=== PATIENT | female | born 1995 | race Caucasian/White ===

== ENCOUNTER 2018-09-14 06:33 | Day surgery (SDC) | payer OTHER ==
--- NOTE | 2018-09-13 19:04 | PREOPHP ---
DATE OF ADMISSION: 09/14/2018 HISTORY OF PRESENT ILLNESS: Ms. Ken Mcgregor is a 22-year-old 0, scheduled for a loop electrod e excision procedure of the cervix secondary to cervical dysplasia. MEDICAL HISTORY: None. MEDICATIONS: 1. Claritin. 2. Omeprazole. PAST SURGICAL HISTORY: None. OBSTETRIC HISTORY: Nulligravid. GYNECOLOGIC HISTORY: 10, regular, 7 days. History of HPV/human papilloma virus. Sexually active wi th 1 partner. SOCIAL HISTORY: Denies any smoking, drugs, or alcohol. FAMILY HISTORY: None. REVIEW OF SYSTEMS: All within normal except history of present illness. PHYSICAL EXAMINATION: HEENT: Within normal. LUNGS: CTA bilateral. CARDIOVASCULAR: S1 and S2. Regular rhythm. ABDOMEN: Soft. Nontender. Negative distention. EXTREMITIES: Negative. No calf tenderness. VAGINAL: Normal external genitalia. Cervix: Negative CMT. Negative lesions. Adnexa: Negative ma ss, nontender, bilateral. Fundus within normal limits. Cervical biopsy at 12 o'clock high grade squ amous dysplasia ANAY 2/HPV. Cervix at 6 o'clock a low grade squamous dysplasia, ANAY 1/HPV. Endocervi x fragments of benign endocervical tissue. Ectocervical tissue, focal HPV age-related changes. Pap smear, HGSIL ASSESSMENT: Cervical dysplasia, ANAY 2. PLAN: Consent for a loop electric excision procedure known as LEEP procedure. Risks, benefits, and alternatives explained. All questions were answered. Dictated By: DE DOWD/CARLEY Conf#: [id number] DID#: [id number] CC: DE STEIN MD;*EndCC*
[~2018-09-14] VITALS: Ht 149.9 cm; Wt 46.0 kg
[2018-09-14] VITALS (12 sets, daily range): BP systolic 84–112; BP diastolic 44–68; PULSE 68–89; RESP 13–21; Ht 149.9 cm; Wt 46.0 kg
[2018-09-14] MEDS ORDERED: OMEP20CA16 PO (07:18)
[2018-09-14] MEDS ORDERED: FLUT16SP17 NASAL (07:18)
[2018-09-14] MEDS ORDERED: LORA-186 PO (07:18)
--- NOTE | 2018-09-14 07:40 | PREAC ---
Date/Time of Note Date/Time of Note DATE: 09/14/18 TIME: 07:39 Anesthesia Eval and Record Evaluation Time Pre-Procedure Interview DATE: 09/14/18 TIME: 07:39 Age 22 Sex female NPO: 8 hrs Preoperative diagnosis cervical dysplasia Planned procedure leep procedure Past Medical History Past Medical History: None Surgery & Anesthesia Issues No known issue Meds Anticoagulation: No Beta Maryjane within 24 hr: No Reason Beta Maryjane not given: Pt. not on B-Maryjane Reported Medications Fluticasone Propionate* (Fluticasone Propionate* Nasal) 50 Mcg/Pearl - 16 Gm Pearl.susp, 1 SPRAY NASAL DAILY, #1 BOTTLE TO EACH NOSTRIL 09/14/18 Loratadine* (Claritin*) 10 Mg Tablet, 10 MG PO DAILY, TAB 09/14/18 Omeprazole* (Omeprazole*) 20 Mg Capsule.dr, 20 MG PO DAILY, #30 CAP 09/14/18 Meds reviewed: Yes Allergies Coded Allergies: nut - unspecified (Verified Allergy, Unknown, 09/14/18) shellfish derived (Verified Allergy, Unknown, 09/14/18) vancomycin (Verified Allergy, Unknown, 09/14/18) Allergies Reviewed: Yes Labs/Studies Labs Reviewed: Reviewed by anesthesiologist Result Diagram: 09/14/18 0710 Laboratory Tests 09/14/18 07:10 test: Negative Pre-procedure Exam Airway: Adequate mouth opening, Adequate thyromental dist Mallampati: Mallampati I Teeth: Normal Lung: Normal Heart: Normal ASA Physical Status ASA physical status: 1 Emergency: None Planned Anesthetic General/MAC: LMA Planned Pain Management Parenteral pain med Pre-operative Attestations Prior to commencing anesthesia and surgery, the patient was re-evaluated, there was verification of: *The patient's identity *The results of appropriate recent lab work and preoperative vital signs *The above evaluation not changing prior to induction *Anesthetic plan, risk benefits, alternative and complications discussed with patient/family; questions answered; patient/family understands, accepts and wishes to proceed. FILIPPO SCHWARZ September 14, 2018 07:40
[2018-09-14] MEDS ORDERED: PROPOFOL 100 ML ONE (07:59)
[2018-09-14] MEDS ORDERED: STRONG IODINE 14 ML SOLUTION TOP ONE (08:00)
[2018-09-14] MEDS ORDERED: FENTAnyl 50 MCG/ML VIAL ONE (08:03)
[2018-09-14] MEDS ORDERED: LIDOCAINE 2% (SDV) 5 ML INJ ONE (08:03)
[2018-09-14] MEDS ORDERED: DEXAMETHASONE 4 MG/ML 5 ML INJ ONE (09:25)
[2018-09-14] MEDS ORDERED: ONDANSETRON 4 MG INJ ONE ×2 (09:26→09:41)
--- NOTE | 2018-09-14 09:44 | OPPN ---
Date/Time of Note Date/Time of Note DATE: 09/14/18 TIME: 09:42 Operative Report Planned Procedure Procedure date September 14, 2018 Procedure(s) LEEP Performed by see signature line Tool Machine Setup Operator: DE STEIN MD 2nd Tool Machine Setup Operator none Anesthesiologist: FILIPPO SCHWARZ Pre-procedure diagnosis Cervical dysplasia, ANAY 2 [id number] Anesthesia Type: [id number] general Post-Procedure Post-procedure diagnosis same Findings normal vaginal exam Estimated Blood Loss: minimal Specimen(s) portion of cervix Grafts/Implant(s) none Complication(s) none DE STEIN MD September 14, 2018 09:44
--- NOTE | 2018-09-14 09:44 | PD.PPDC ---
EYEGLASS LENS GRINDER Discharge Instruction Condition [id number] Patient Condition: [id number] Fair Diet [id number] Diet: [id number] Resume Regular Diet Activity/Restrictions [id number] Activity: Wyefj9m Normal Activity May Shower Follow-up Follow-up with Physician: 2, Week/Weeks Return to clinic for [id number] TECHNICAL SUPPORT AGENT Instructions: Upjgy1y Fever greater than 101 Chills Worsening abdominal pain Excessive Vaginal Bleeding More than 2 pads per hour Unable to tolerate diet [id number] OB Instructions: Uyhek0b Breast Tenderness Depression Blurried Vision Headache [id number] Surgical Instructions: Wgxuq8y Incisional Drainage Incisional Redness DE STEIN MD September 14, 2018 09:44
--- NOTE | 2018-09-14 09:52 | PAC ---
Date/Time of Note Date/Time of Note DATE: 09/14/18 TIME: 09:51 Post-Anesthesia Notes Post-Anesthesia Note Last documented vital signs temp 98 bp 90/67 p 67 r 15 Activity: WNL Respiratory function: WNL Cardiovascular function: WNL Mental status: Baseline Pain reasonably controlled: Yes Hydration appropriate: Yes Nausea/Vomiting absent: Yes FILIPPO SCHWARZ September 14, 2018 09:52
[2018-09-14] MEDS ORDERED: hydrALAzine 20 MG INJ IV PRN (10:00)
[2018-09-14] MEDS ORDERED: LABETALOL HCL 20MG INJ IV PRN (10:00)
[2018-09-14] MEDS ORDERED: EPHEDrine SULFATE 50 MG/5 ML SYG IV PRN (10:00)
[2018-09-14] MEDS ORDERED: OXYCODONE/ACETAMINOPHEN (5/325) TAB PO PRN ×2 (10:00)
[2018-09-14] MEDS ORDERED: FENTAnyl 50 MCG/ML VIAL IV PRN ×3 (10:00)
[2018-09-14] MEDS ORDERED: DIPHENHYDRAMINE 50 MG INJ IV PRN (10:00)
[2018-09-14] MEDS ORDERED: ONDANSETRON 4 MG INJ IV PRN (10:00)
[2018-09-14] MEDS ORDERED: MEPERIDINE 25 MG INJ IV PRN (10:00)
[2018-09-14] MEDS ORDERED: ALBUTEROL 0.083% (NEB) 2.5 MG/3 ML AMP HHN PRN (10:00)
[2018-09-14] MEDS ORDERED: KETOROLAC 30 MG INJ IV PRN (10:00)
--- NOTE | 2018-09-15 10:58 | OPR ---
DATE OF OPERATION: 09/14/2018 PREOPERATIVE DIAGNOSIS: Cervical dysplasia. POSTOPERATIVE DIAGNOSIS: Cervical dysplasia. OPERATION PERFORMED: Loop electrosurgical excision procedure. SURGEON: De Cobb MD. SPRING FORMER: None. ANESTHESIA: General. ESTIMATED BLOOD LOSS: Minimal. COMPLICATIONS: None. PATHOLOGY: Portion of the cervix. FINDINGS: Bimanual examination revealed normal sized midline uterus with no adnexal masses palpated, cervix did not appear to have any gross masses. Lugol solution revealed areas of nonreuptake around the squamocolumnar junction. The ectocervix was with anterior and posterior portion. Endocervical specimen from top hat. DESCRIPTION OF PROCEDURE: After explaining the risks, benefits and alternatives to the patient and c onsent signed in chart, the patient was taken to the OR where the patient was placed under anesthesia without difficulty. The patient was then draped in the usual sterile fashion and placed in a dorsal lithotomy position. Preoperative bimanual examination revealed findings noted above. A preoperativ e urinary test was also negative. At that time a large Graves' speculum was placed in the patient's vagina and Lugol solution was painted along the entire cervix and vaginal wall. Areas of t he nonreuptake were noted to be around the squamocolumnar junction. A loop electrode was used to rem ove the top portion of the cervix and sent to pathology. The bed of the excised cervix tissue along the cervix was cauterized using the rollerball. Hemostasis was noted. All instruments were removed from the patient's vagina. At this point, the patient tolerated the procedure well without complicat ion and was taken to the recovery room in stable condition. Dictated By: DE DOWD/CARLEY Conf#: [id number] DID#: [id number]
== END 2018-09-14 11:30 | disposition home or self-care (01) ==
LOC: SDS 06:33
PROVIDERS: ATTEND Obstetrics & Gynecology
DX: N87.9 Dysplasia of cervix uteri, unspecified (principal)
CPT/HCPCS: 57522; 84702; 85025; 86850; 86900; 86901; 88305; J1100; J2405; J3010; Z7512; Z7610